=== PATIENT | male | born 1995 | race Caucasian/White ===

== ENCOUNTER 2021-09-02 07:27 | Emergency (ER) | payer OTHER ==
[~2021-09-02] VITALS: Ht 180.3 cm; Wt 95.5 kg
[~2021-09-02 07:27] MED LIST: ALBU8.5H3 IH; FLUO-191 PO
[2021-09-02 07:48] LABS: COVID AG,FIA SOURCE NASAL SWAB
[2021-09-02 08:49] VITALS: BP 140/80
== END 2021-09-02 09:28 | disposition home or self-care (01) ==
LOC: EMS 07:27 → EDUNIT# 07:27 → EMS 09:28
DX: Z20.822 Contact with and (suspected) exposure to COVID-19 (principal); Z88.1 Allergy status to other antibiotic agents; Z79.899 Other long term (current) drug therapy
CPT/HCPCS: 99283